=== PATIENT | male | born 1960 | race Hispanic/Latino ===

== ENCOUNTER 2021-04-11 17:02 | Inpatient (IN) | payer MEDICARE, SELFPAY ==
[~2021-04-11 17:02] MED LIST: Bacitracin Zinc Ointment 30 gm TUBE ONE; Betamet Acet/Betamet Na Ph 30 MG/5 ML VIAL ONE; Bupivacaine PF 0.5% 30 ML VIAL ONE; Heparin 10,000 UNITS/ 10 ML VIAL ONE; Hetastarch 6% 500 ML 0 ML ONE; Lidocaine 2% PF 5 ML VIAL ONE; Neomycin-Polymyxin 1 ML AMP ONE
[2021-04-11] MEDS ORDERED: Fentanyl 100 MCG/2 ML VIAL ONE (17:27)
[2021-04-11] MEDS ORDERED: Phenylephrine 10 MG/ML VIAL ONE ×2 (17:56→18:36)
[2021-04-11] MEDS ORDERED: Rocuronium Bromide 10 MG/ML (10ML VIAL) ONE (17:56)
[2021-04-11] MEDS ORDERED: Lidocaine 1% PF 5 ML VIAL ONE (17:56)
[2021-04-11] MEDS ORDERED: PROPOFOL 200 MG/20 ML VIAL ONE (17:56)
[2021-04-11] MEDS ORDERED: Ondansetron PF 4 MG/2 ML Vial ONE (17:56)
[2021-04-11] MEDS ORDERED: ePHEDrine 50 MG/ML VIAL ONE (17:56)
[2021-04-11] MEDS ORDERED: Fentanyl 100 MCG/2 ML VIAL SLOW IVP PRN (18:08)
[2021-04-11] MEDS ORDERED: Promethazine HCl 25 MG/ML VIAL IM PRN ×2 (18:08→19:40)
[2021-04-11] MEDS ORDERED: traMADol HCl 50 MG TAB PO PRN (18:08)
[2021-04-11] MEDS ORDERED: Bisacodyl 10 MG SUPP PR PRN (18:08)
[2021-04-11] MEDS ORDERED: Morphine 4 MG/ML VIAL SLOW IVP PRN (18:08)
[2021-04-11] MEDS ORDERED: Milk Of Magnesia 30 ML UDCUP PO PRN (18:08)
[2021-04-11] MEDS ORDERED: Ondansetron PF 4 MG/2 ML Vial IVP PRN (18:08)
[2021-04-11] MEDS ORDERED: Acetaminophen 325 MG TAB PO PRN (18:08)
[2021-04-11] MEDS ORDERED: Meperidine HCl/PF 25 MG/ML VIAL IM PRN (18:11)
[2021-04-11] MEDS ORDERED: Communication Order-Pharmacy FS SCH (18:15)
[2021-04-11] MEDS ORDERED: TETANUS AND DIPHTHERIA TOX/PF 0.5 ML DISP.SYRIN IM SCH (18:15)
[2021-04-11] MEDS ORDERED: Gentamicin 80 MG/2 ML VIAL ONE (18:23)
[2021-04-11 18:58] LABS: Anion Gap 12 mmol/L (10-20); BUN (Urea Nitrogen) 26 mg/dL (8.4-25.7); Calc. Creatinine Clearance 0 mL/min (70-130); Calcium 9.3 mg/dL (7.8-10.44); Carbon Dioxide 30 mmol/L (23-31); Chloride 102 mmol/L (98-107); Glucose 115 mg/dL (80-115); Potassium 4.9 mmol/L (3.5-5.1); Sodium 139 mmol/L (136-145)
[2021-04-11] MEDS ORDERED: SUGAMMADEX SODIUM 200 MG/2 ML VIAL ONE (19:23)
[2021-04-11] MEDS ORDERED: Ondansetron HCl/PF 4 MG/2 ML Vial IVP PRN (19:40)
[2021-04-11] MEDS ORDERED: Promethazine HCl 25 MG/ML VIAL IVPB PRN (19:40)
[2021-04-11 22:50] VITALS: BMI 46.0
[2021-04-11] MEDS: Aspirin 81 mg Enteric Coated Tablet PO SCH (23:30)
[2021-04-11] MEDS: Sodium Chloride 0.9% 1,000 ML IV SCH (23:36)
[2021-04-12] MEDS: Vancomycin 1.5 GRAM/300 ML BAG 1.5 GM in Premix Bag 1 BAG IVPB SCH ×3 (00:40→23:58)
[2021-04-12] MEDS ORDERED: HumaLOG 300 UNITS/3 ML VIAL SC PRN ×2 (02:40)
[2021-04-12] MEDS ORDERED: Dextrose 5% in Water 1,000 ML IV PRN ×2 (02:40→02:52)
[2021-04-12] MEDS ORDERED: Dextrose 50% Abboject 50 ML SYRINGE SLOW IVP PRN ×2 (02:40→02:52)
[2021-04-12] MEDS ORDERED: Furosemide 20 MG/2 ML VIAL SLOW IVP SCH (03:15)
[2021-04-12] MEDS: Sodium Chloride 0.9% 1,000 ML IV SCH ×2 (05:42→14:37)
[2021-04-12 06:44] LABS: #Eosinphils 0.8 thou/uL (0.0-0.7); #Lymphocytes 1.7 thou/uL (1.20-3.40); #Monocytes 0.8 thou/uL (0.11-0.59); #Neutrophils 4.8 thou/uL (1.40-6.50); %Basophils 0.3 % (0.0-1.0); %Eosinophils 9.6 % (0.0-10.0); %Lymphocytes 20.9 % (21.0-51.0); %Monocytes 9.3 % (0.0-10.0); %Neutrophils 59.9 % (42.0-75.0); Hemoglobin 12.4 g/dL (14.0-18.0); Mean Corpuscular HGB CONC 33.1 g/dL (32.0-36.0); Mean Corpuscular Volume 93.6 fL (78.0-98.0); Mean Platelet Volume 7.2 fL (7.4-10.4); Platelet Count 200 thou/uL (130-400); RBC Distribution Width 13.5 % (11.5-14.5); Red Blood Cell (RBC) Count 3.99 mill/uL (4.70-6.10)
[2021-04-12] MEDS: HumaLOG 300 UNITS/3 ML VIAL SC PRN ×3 (06:47→18:51)
[2021-04-12 06:50] LABS: Hemoglobin A1c 9.4 % (4.0-6.0)
[2021-04-12] MEDS: Aspirin 81 mg Enteric Coated Tablet PO SCH ×2 (09:41→20:40)
[2021-04-12] MEDS: Famotidine/PF 20 mg/2ml Vial SLOW IVP SCH ×2 (09:41→20:41)
[2021-04-12 15:46] LABS: Free T4 (Free Thyroxine) 0.66 ng/dL (0.70-1.48)
[2021-04-13] MEDS: Sodium Chloride 0.9% 1,000 ML IV SCH ×3 (01:42→21:28)
[2021-04-13] MEDS: HumaLOG 300 UNITS/3 ML VIAL SC PRN ×3 (05:41→16:07)
[2021-04-13] MEDS: Aspirin 81 mg Enteric Coated Tablet PO SCH ×2 (08:34→21:39)
[2021-04-13] MEDS: Famotidine/PF 20 mg/2ml Vial SLOW IVP SCH ×2 (08:34→21:43)
[2021-04-13 08:41] LABS: #Lymphocytes 1.8 thou/uL (1.20-3.40); #Monocytes 0.6 thou/uL (0.11-0.59); #Neutrophils 4.1 thou/uL (1.40-6.50); %Basophils 0.4 % (0.0-1.0); %Lymphocytes 23.7 % (21.0-51.0); %Monocytes 7.4 % (0.0-10.0); %Neutrophils 55.4 % (42.0-75.0); Hemoglobin 13.4 g/dL (14.0-18.0); Mean Corpuscular Hemoglobin 30.9 pg (27.0-31.0); Mean Corpuscular Volume 93.7 fL (78.0-98.0); Mean Platelet Volume 7.4 fL (7.4-10.4); Platelet Count 215 thou/uL (130-400); RBC Distribution Width 13.4 % (11.5-14.5); Red Blood Cell (RBC) Count 4.34 mill/uL (4.70-6.10); White Blood Cell (WBC) Count 7.4 thou/uL (4.8-10.8)
[2021-04-13 09:00] LABS: Anion Gap 12 mmol/L (10-20); BUN (Urea Nitrogen) 19 mg/dL (8.4-25.7); Calc. Creatinine Clearance 144 mL/min (70-130); Calcium 9.2 mg/dL (7.8-10.44); Carbon Dioxide 29 mmol/L (23-31); Chloride 98 mmol/L (98-107); Glucose 318 mg/dL (80-115); Sodium 134 mmol/L (136-145)
[2021-04-13] MEDS: Vancomycin 1.5 GRAM/300 ML BAG 1.5 GM in Premix Bag 1 BAG IVPB SCH ×2 (11:32→23:42)
[2021-04-13 12:00] LABS: Vancomycin, Trough 15.5 ug/mL
[2021-04-13] MEDS: HYDROcodone/Acetaminophen 5/325 mg Tablet PO PRN (16:06)
[2021-04-13] MEDS ORDERED: Lantus 1000 UNITS/10 ML VIAL SC SCH (21:00)
[2021-04-13] MEDS: Alogliptin 25 MG TAB PO SCH (21:39)
[2021-04-14 05:29] LABS: #Eosinphils 0.9 thou/uL (0.0-0.7); #Lymphocytes 1.8 thou/uL (1.20-3.40); #Monocytes 0.7 thou/uL (0.11-0.59); #Neutrophils 3.6 thou/uL (1.40-6.50); %Basophils 0.5 % (0.0-1.0); %Lymphocytes 25.1 % (21.0-51.0); %Neutrophils 51.4 % (42.0-75.0); Hemoglobin 12.8 g/dL (14.0-18.0); Mean Corpuscular HGB CONC 32.2 g/dL (32.0-36.0); Mean Corpuscular Hemoglobin 29.8 pg (27.0-31.0); Mean Corpuscular Volume 92.7 fL (78.0-98.0); Platelet Count 228 thou/uL (130-400); RBC Distribution Width 13.3 % (11.5-14.5); Red Blood Cell (RBC) Count 4.29 mill/uL (4.70-6.10)
[2021-04-14 05:47] LABS: Anion Gap 16 mmol/L (10-20); BUN (Urea Nitrogen) 23 mg/dL (8.4-25.7); Calc. Creatinine Clearance 129 mL/min (70-130); Calcium 9.4 mg/dL (7.8-10.44); Carbon Dioxide 23 mmol/L (23-31); Chloride 100 mmol/L (98-107); Glucose 273 mg/dL (80-115); Potassium 4.8 mmol/L (3.5-5.1); Sodium 134 mmol/L (136-145)
[2021-04-14] MEDS: Sodium Chloride 0.9% 1,000 ML IV SCH ×2 (05:54→18:22)
[2021-04-14] MEDS: Levothyroxine Sodium 100 MCG TAB PO SCH (05:56)
[2021-04-14] MEDS: HumaLOG 300 UNITS/3 ML VIAL SC PRN ×2 (05:57→18:02)
[2021-04-14] MEDS: Gabapentin 300 MG CAP PO SCH (08:50)
[2021-04-14] MEDS: Alogliptin 25 MG TAB PO SCH ×2 (08:51→21:47)
[2021-04-14] MEDS: Atorvastatin Calcium 40 MG TAB PO SCH (08:51)
[2021-04-14] MEDS: metFORMIN 500 MG TAB PO SCH ×3 (08:51→17:59)
[2021-04-14] MEDS: Aspirin 81 mg Enteric Coated Tablet PO SCH ×2 (08:51→21:12)
[2021-04-14] MEDS: Lantus 1000 UNITS/10 ML VIAL SC SCH ×2 (08:56→21:55)
[2021-04-14] MEDS: Famotidine/PF 20 mg/2ml Vial SLOW IVP SCH ×2 (08:57→21:12)
[2021-04-14] MEDS ORDERED: Fentanyl 100 MCG/2 ML VIAL ONE ×2 (13:08)
[2021-04-14] MEDS ORDERED: Neomycin-Polymyxin 1 ML AMP ONE ×2 (13:13→14:20)
[2021-04-14] MEDS ORDERED: Bacitracin Zinc Ointment 30 gm TUBE ONE (13:13)
[2021-04-14] MEDS ORDERED: Bupivacaine PF 0.5% 30 ML VIAL ONE (13:13)
[2021-04-14] MEDS: Vancomycin 1.5 GRAM/300 ML BAG 1.5 GM in Premix Bag 1 BAG IVPB SCH (13:39)
[2021-04-14] MEDS ORDERED: ePHEDrine 50 MG/ML VIAL ONE (13:52)
[2021-04-14] MEDS ORDERED: PROPOFOL 200 MG/20 ML VIAL ONE (13:52)
[2021-04-14] MEDS ORDERED: PHENYLEPHRINE-NS 100 MCG/ML 10 ML SYRINGE ONE (13:52)
[2021-04-14] MEDS ORDERED: Rocuronium Bromide 10 MG/ML (10ML VIAL) ONE (13:52)
[2021-04-14] MEDS ORDERED: Ondansetron PF 4 MG/2 ML Vial ONE (13:52)
[2021-04-14] MEDS ORDERED: Glycopyrrolate 0.2 MG/ML 5 ML SYRINGE ONE (13:52)
[2021-04-14] MEDS ORDERED: Lidocaine 1% PF 5 ML VIAL ONE (13:52)
[2021-04-14] MEDS: HYDROcodone/Acetaminophen 5/325 mg Tablet PO PRN (21:11)
[2021-04-15] MEDS: Vancomycin 1.5 GRAM/300 ML BAG 1.5 GM in Premix Bag 1 BAG IVPB SCH (00:49)
[2021-04-15] MEDS: Sodium Chloride 0.9% 1,000 ML IV SCH ×2 (04:33→16:00)
[2021-04-15] MEDS: HumaLOG 300 UNITS/3 ML VIAL SC PRN (06:35)
[2021-04-15] MEDS: Levothyroxine Sodium 100 MCG TAB PO SCH (06:38)
[2021-04-15] MEDS ORDERED: Enoxaparin Sodium 40 MG/0.4 ML SYRINGE SC SCH (09:00)
[2021-04-15] MEDS: Aspirin 81 mg Enteric Coated Tablet PO SCH (09:16)
[2021-04-15] MEDS: metFORMIN 500 MG TAB PO SCH (09:16)
[2021-04-15] MEDS: Gabapentin 300 MG CAP PO SCH (09:16)
[2021-04-15] MEDS: Famotidine/PF 20 mg/2ml Vial SLOW IVP SCH (09:17)
[2021-04-15] MEDS: Atorvastatin Calcium 40 MG TAB PO SCH (09:17)
[2021-04-15 09:26] LABS: #Eosinphils 0.5 thou/uL (0.0-0.7); #Lymphocytes 1.7 thou/uL (1.20-3.40); #Monocytes 0.4 thou/uL (0.11-0.59); #Neutrophils 4.6 thou/uL (1.40-6.50); %Basophils 0.5 % (0.0-1.0); %Eosinophils 7.5 % (0.0-10.0); %Lymphocytes 23.4 % (21.0-51.0); %Monocytes 5.7 % (0.0-10.0); Hemoglobin 13.3 g/dL (14.0-18.0); Mean Corpuscular HGB CONC 32.8 g/dL (32.0-36.0); Mean Corpuscular Hemoglobin 30.4 pg (27.0-31.0); Mean Corpuscular Volume 92.6 fL (78.0-98.0); Mean Platelet Volume 7.4 fL (7.4-10.4); Platelet Count 223 thou/uL (130-400); RBC Distribution Width 13.6 % (11.5-14.5); Red Blood Cell (RBC) Count 4.37 mill/uL (4.70-6.10); White Blood Cell (WBC) Count 7.2 thou/uL (4.8-10.8)
[2021-04-15 09:43] LABS: Anion Gap 14 mmol/L (10-20); BUN (Urea Nitrogen) 21 mg/dL (8.4-25.7); Calc. Creatinine Clearance 140 mL/min (70-130); Calcium 9.4 mg/dL (7.8-10.44); Carbon Dioxide 27 mmol/L (23-31); Chloride 100 mmol/L (98-107); Glucose 181 mg/dL (80-115); Potassium 4.7 mmol/L (3.5-5.1); Sodium 136 mmol/L (136-145)
[2021-04-15] MEDS: Alogliptin 25 MG TAB PO SCH (09:54)
[2021-04-15] MEDS: Lantus 1000 UNITS/10 ML VIAL SC SCH (09:54)
[2021-04-15 12:49] VITALS: BP 135/80; TEMP 98.3
[2021-04-15] MEDS: HYDROcodone/Acetaminophen 5/325 mg Tablet PO PRN (15:43)
== END 2021-04-15 16:40 | disposition home or self-care (01) | DRG 580 ==
LOC: SDC/OP 17:02 → SJJU 20:41
PROVIDERS: ADMIT Orthopaedic Surgery Hand Surgery; ATTEND Orthopaedic Surgery Hand Surgery
PROC: 0RBU0ZZ Excision of Right Metacarpophalangeal Joint, Open Approach (ICD-10-PCS; 2021-04-11)
PROC: 01Q60ZZ Repair Radial Nerve, Open Approach (ICD-10-PCS; 2021-04-11)
PROC: 0LQ70ZZ Repair Right Hand Tendon, Open Approach (ICD-10-PCS; principal; 2021-04-14)
DX: S61.011A Laceration without foreign body of right thumb without damage to nail, initial encounter (principal); S66.221A Laceration of extensor muscle, fascia and tendon of right thumb at wrist and hand level, initial encounter; Z68.42 Body mass index [BMI] 45.0-49.9, adult; E66.01 Morbid (severe) obesity due to excess calories; E11.51 Type 2 diabetes mellitus with diabetic peripheral angiopathy without gangrene; E11.621 Type 2 diabetes mellitus with foot ulcer; L97.519 Non-pressure chronic ulcer of other part of right foot with unspecified severity; E11.69 Type 2 diabetes mellitus with other specified complication; E78.5 Hyperlipidemia, unspecified; Z20.822 Contact with and (suspected) exposure to COVID-19; Z79.4 Long term (current) use of insulin; Z79.899 Other long term (current) drug therapy; Z87.891 Personal history of nicotine dependence; W31.89XA Contact with other specified machinery, initial encounter; Y92.009 Unspecified place in unspecified non-institutional (private) residence as the place of occurrence of the external cause; Z79.84 Long term (current) use of oral hypoglycemic drugs; E03.9 Hypothyroidism, unspecified; Z98.42 Cataract extraction status, left eye; Z98.41 Cataract extraction status, right eye
CPT/HCPCS: 36415; 36416; 80048; 80202; 83036; 84439; 84443; 84481; 85025; J0702; J1580; J1644; J1650; J1815; J1940; J2001; J2370; J2405; J2704; J3010; J3370; J3490; J7050; S0020; S0028